=== PATIENT | male | born 1985 | race Two or more races ===

== ENCOUNTER 2017-11-17 16:56 | Emergency (ER) | payer OTHER ==
--- NOTE | 2017-11-17 17:15 | ED PDOC ---
HPI: Psych/Substance Abuse Time Seen by Provider: 11/17/17 17:05 Chief Complaint (Nursing): Alcohol Ingestion Chief Complaint (Provider): ETOH History Per: Patient, EMS Additional Complaint(s): 32 year old male presents acutely intoxicated. Police were called after patient was found asleep in the vestibule of an apartment building. He was found with his friend who was also intoxicated and brought to ED as well. Patient admits to drinking today and denies any drug use. He offers no acute complaints. Past Medical History Reviewed: Historical Data, Nursing Documentation, Vital Signs Vital Signs: Last Vital Signs Temp 98.0 F 11/17/17 17:05 Pulse 112 H 11/17/17 17:05 Resp 20 11/17/17 17:05 BP 142/87 11/17/17 17:05 Pulse Ox 97 11/17/17 17:05 - Medical History PMH: No Chronic Diseases - Surgical History Surgical History: No Surg Hx - Family History Family History: States: No Known Family Hx - Living Arrangements Living Arrangements: With Friends/Others - Social History Current smoker - smoking cessation education provided: No Alcohol: Social Drugs: Denies - Allergies Allergies/Adverse Reactions: Allergies Allergy/AdvReac Type Severity Reaction Status Date / Time No Known Allergies Allergy Verified 11/17/17 17:03 Review of Systems ROS Statement: Except As Marked, All Systems Reviewed And Found Negative Psych: Positive for: Other (etoh) Physical Exam - Reviewed Nursing Documentation Reviewed: Yes Vital Signs Reviewed: Yes - Physical Exam Appears: Positive for: Well, Non-toxic, No Acute Distress Skin: Negative for: Rash Eye Exam: Positive for: Normal appearance Cardiovascular/Chest: Positive for: Regular Rate, Rhythm Respiratory: Positive for: Normal Breath Sounds Extremity: Positive for: Normal ROM Neurologic/Psych: Positive for: Alert, Other (intoxicated, answers some questions appropriately) - ECG O2 Sat by Pulse Oximetry: 97 Pulse Ox Interpretation: Normal Medical Decision Making Medical Decision Makin32 year old intoxicated male Patient is cooperative upon arrival. He changed into gown. Fingerstick: 93 Patient was observed in ED for about 2 hours. His condition remained stable throughout his stay 6:35 pm: patient is awake, alert, has steady gait, stable for discharge. Repeat vitals are normal prior to discharge. Disposition - Clinical Impression Clinical Impression: Alcohol intoxication - Patient ED Disposition Is Patient to be Admitted: No - Disposition Referrals: [facility] [Outside] Disposition: Routine/Home Disposition Time: 18:11 Condition: STABLE Instructions: Alcohol Use - When Is Drinking a Problem? Forms: [employer] ([place])
[2017-11-17 18:44] VITALS: BP 128/77; PULSE 84; RESP 16; TEMP 98.1
[2017-11-17 19:29] VITALS: O2SAT 97
== END 2017-11-17 18:46 | disposition home or self-care (01) ==
LOC: H.ER 16:56
DX: F10.129 Alcohol abuse with intoxication, unspecified (principal)